=== PATIENT | male | born 1990 | race Caucasian/White ===

== ENCOUNTER 2019-11-18 18:20 | Emergency (ER) | payer OTHER ==
[~2019-11-18] VITALS: Ht 172.7 cm; Wt 73.0 kg
[2019-11-18] MEDS ORDERED: IBUPROFEN 600MG TABLET PO ONE (19:00)
[2019-11-18 20:10] VITALS: BP 107/59
== END 2019-11-18 20:22 | disposition home or self-care (01) ==
LOC: ER 18:29
DX: R07.89 Other chest pain (principal); R51 Headache; R03.0 Elevated blood-pressure reading, without diagnosis of hypertension
CPT/HCPCS: 71045; 93005; 99285